=== PATIENT | female | born 1980 | race Caucasian/White ===

== ENCOUNTER → 2018-03-18 | Outpatient (CLI) | payer OTHER ==
[2018-03-18 14:01] LABS: BASOPHILS ABSOLUTE AUTO 0.07 K/mm3 (0.00-0.23); BASOPHILS PERCENT AUTO 1 % (0-2); EOSINOPHILS ABSOLUTE AUTO 0.11 K/mm3 (0.00-0.68); EOSINOPHILS PERCENT AUTO 2 % (0-6); Hematocrit 35.5 % (33.0-51.0); Hemoglobin 11.8 g/dL (11.5-16.0); IMMATURE GRAN ABSOLUTE AUTO 0.03 K/mm3 (0.00-0.10); IMMATURE GRAN PERCENT AUTO 0 % (0-1); LYMPHOCYTES PERCENT AUTO 41 % (21-46); MONOCYTES ABSOLUTE AUTO 0.36 K/mm3 (0.16-1.47); MONOCYTES PERCENT AUTO 5 % (4-13); Mean Corpuscular HGB 31.8 pg (26.0-34.0); Mean Corpuscular HGB Conc 33.2 g/dL (31.5-36.5); Mean Corpuscular Volume 96 fL (80-100); Mean Platelet Volume 10.9 fL (9.1-12.4); NEUTROPHILS ABSOLUTE AUTO 3.81 K/mm3 (1.96-9.15); NEUTROPHILS PERCENT AUTO 51 % (41-73); Platelet Count 320 K/mm3 (150-400); RDW Coefficient Variation 14.3 % (11.7-14.2); RDW Standard Deviation 50.1 fL (35.1-46.3); Red Blood Cell Count 3.71 M/mm3 (3.80-5.20); White Blood Cell Count 7.48 K/mm3 (4.00-11.30)
[2018-03-18 14:21] LABS: Anion Gap 11 mmol/L (6-16); Blood Urea Nitrogen 8 mg/dL (8-24); CO2, Blood 25 mmol/L (21-32); Calcium, Blood 9.2 mg/dL (8.5-10.1); Chloride, Blood 105 mmol/L (98-108); Creatinine, Blood 0.73 mg/dL (0.40-1.00); Free Thyroxine 0.98 ng/dL (0.70-1.60); Glomerular Filtration Rate >60 (60-); Glucose, Blood 95 mg/dL (70-99); Potassium, Blood 3.6 mmol/L (3.5-5.5); Sodium, Blood 141 mmol/L (136-145); Thyroid Stimulating Hormone 0.735 uIU/mL (0.360-4.800)
== END ==
LOC: LAB EV 13:57 → LAB SHORT 13:57
PROVIDERS: Physician Assistant Surgical
DX: N94.6 Dysmenorrhea, unspecified (principal); R53.83 Other fatigue
CPT/HCPCS: 80048; 84439; 84443; 84481; 85025

== ENCOUNTER 2018-04-22 05:51 | Day surgery (SDC) | payer OTHER ==
[~2018-04-22] VITALS: Ht 160 cm; Wt 60.8 kg
[2018-04-22] MEDS ORDERED: BIRTH CONTROL (06:05)
[2018-04-22 06:49] LABS: BASOPHILS ABSOLUTE AUTO 0.08 K/mm3 (0.00-0.23); BASOPHILS PERCENT AUTO 1 % (0-2); EOSINOPHILS ABSOLUTE AUTO 0.17 K/mm3 (0.00-0.68); EOSINOPHILS PERCENT AUTO 1 % (0-6); Hematocrit 27.2 % (33.0-51.0); Hemoglobin 8.9 g/dL (11.5-16.0); IMMATURE GRAN ABSOLUTE AUTO 0.04 K/mm3 (0.00-0.10); IMMATURE GRAN PERCENT AUTO 0 % (0-1); LYMPHOCYTES ABSOLUTE AUTO 3.31 K/mm3 (0.84-5.20); LYMPHOCYTES PERCENT AUTO 25 % (21-46); MONOCYTES ABSOLUTE AUTO 0.48 K/mm3 (0.16-1.47); MONOCYTES PERCENT AUTO 4 % (4-13); Mean Corpuscular HGB 31.8 pg (26.0-34.0); Mean Corpuscular HGB Conc 32.7 g/dL (31.5-36.5); Mean Corpuscular Volume 97 fL (80-100); Mean Platelet Volume 10.5 fL (9.1-12.4); NEUTROPHILS ABSOLUTE AUTO 8.94 K/mm3 (1.96-9.15); NEUTROPHILS PERCENT AUTO 69 % (41-73); Platelet Count 332 K/mm3 (150-400); RDW Coefficient Variation 13.7 % (11.7-14.2); RDW Standard Deviation 49.1 fL (35.1-46.3); White Blood Cell Count 13.02 K/mm3 (4.00-11.30)
[2018-04-22 07:23] LABS: Anion Gap 9 mmol/L (6-16); Blood Urea Nitrogen 14 mg/dL (8-24); Bun/Creatinine Ratio 21.1 (12.0-20.0); CO2, Blood 20 mmol/L (21-32); Calcium, Blood 7.8 mg/dL (8.5-10.1); Chloride, Blood 113 mmol/L (98-108); Creatinine, Blood 0.67 mg/dL (0.40-1.00); Glomerular Filtration Rate >60 (60-); Glucose, Blood 82 mg/dL (70-99); Potassium, Blood 3.5 mmol/L (3.5-5.5); Sodium, Blood 142 mmol/L (136-145)
[2018-04-22 15:52] LABS: Hematocrit 28.8 % (33.0-51.0); Hemoglobin 9.6 g/dL (11.5-16.0)
== END 2018-04-22 18:43 | disposition home or self-care (01) ==
LOC: ER 05:51 → ORSCMMR 06:00 → ORD 06:00 → ORSCMMR 06:01 → ER 07:21 → SURS 07:21 → ORD 18:43 → SURS 18:43
PROVIDERS: Emergency Medicine; Obstetrics & Gynecology
PROC: 0UB98ZZ Excision of Uterus, Via Natural or Artificial Opening Endoscopic (ICD-10-PCS; principal; 2018-04-22)
PROC: 0UT74ZZ Resection of Bilateral Fallopian Tubes, Percutaneous Endoscopic Approach (ICD-10-PCS; principal; 2018-04-22)
PROC: 0U5B8ZZ Destruction of Endometrium, Via Natural or Artificial Opening Endoscopic (ICD-10-PCS; principal; 2018-04-22)
DX: N92.0 Excessive and frequent menstruation with regular cycle (principal); D64.9 Anemia, unspecified; D25.9 Leiomyoma of uterus, unspecified; Z30.2 Encounter for sterilization
CPT/HCPCS: 36415; 36430; 80048; 85014; 85018; 85025; 86850; 86900; 86901; 86923; 96361; 96374; 99285; J1200; J2310; J2405; J3010; J7030; J7120; P9016

== ENCOUNTER 2018-04-29 10:49 | Day surgery (SDC) | payer OTHER ==
[~2018-04-29] VITALS: Ht 160 cm; Wt 61.7 kg
[~2018-04-29 10:49] MED LIST: BIRTH CONTROL
[2018-04-29] MEDS ORDERED: SLOW FE142 MG PO (11:07)
== END 2018-04-29 14:50 | disposition home or self-care (01) ==
LOC: ORSCSDS 10:49
PROVIDERS: Obstetrics & Gynecology
PROC: 0U5B8ZZ Destruction of Endometrium, Via Natural or Artificial Opening Endoscopic (ICD-10-PCS; principal; 2018-04-29 12:00)
PROC: 0UB74ZZ Excision of Bilateral Fallopian Tubes, Percutaneous Endoscopic Approach (ICD-10-PCS; principal; 2018-04-29 12:00)
DX: N92.1 Excessive and frequent menstruation with irregular cycle (principal); D25.0 Submucous leiomyoma of uterus; N93.8 Other specified abnormal uterine and vaginal bleeding; Z30.2 Encounter for sterilization
CPT/HCPCS: 88302; 88305; J0171; J0690; J1100; J2250; J2405; J2710; J3010

== ENCOUNTER → 2018-07-14 | Outpatient (CLI) | payer OTHER ==
[~2018-07-14] MED LIST changes: +SLOW FE142 MG PO
== END | disposition home or self-care (01) ==
LOC: LAB SHORT 07:56 → PLD 07:56
DX: D48.5 Neoplasm of uncertain behavior of skin (principal)
CPT/HCPCS: 88305

== ENCOUNTER 2020-07-09 23:49 | Emergency (ER) | payer OTHER ==
[~2020-07-09] VITALS: Ht 160 cm; Wt 52.2 kg
[2020-07-10 00:23] LABS: Source, Urine Clean Catch
[2020-07-10 00:28] LABS: Bilirubin, Urine Neg (Neg); Blood, Urine Neg (Neg); Glucose Qualitative, Urine Neg (Neg); Ketones, Urine 1+ (Neg); Leukocyte Esterase, Urine Neg (Neg); Nitrite, Urine Neg (Neg); Protein, Urine Neg (Neg); Specific Gravity, Urine 1.005 (1.003-1.022); Urobilinogen, Urine NORM (Normal)
[2020-07-10 00:29] LABS: Appearance, Urine Clear (Clear); Color, Urine Yellow (P-Yellow)
[2020-07-10 00:38] LABS: BASOPHILS ABSOLUTE AUTO 0.09 K/mm3 (0.00-0.23); BASOPHILS PERCENT AUTO 1 % (0-2); EOSINOPHILS ABSOLUTE AUTO 0.09 K/mm3 (0.00-0.68); EOSINOPHILS PERCENT AUTO 1 % (0-6); Hematocrit 34.8 % (33.0-51.0); Hemoglobin 11.3 g/dL (11.5-16.0); IMMATURE GRAN ABSOLUTE AUTO 0.03 K/mm3 (0.00-0.10); IMMATURE GRAN PERCENT AUTO 0 % (0-1); LYMPHOCYTES ABSOLUTE AUTO 3.35 K/mm3 (0.84-5.20); LYMPHOCYTES PERCENT AUTO 42 % (21-46); MONOCYTES ABSOLUTE AUTO 0.33 K/mm3 (0.16-1.47); MONOCYTES PERCENT AUTO 4 % (4-13); Mean Corpuscular HGB 31.9 pg (26.0-34.0); Mean Corpuscular HGB Conc 32.5 g/dL (31.5-36.5); Mean Corpuscular Volume 98 fL (80-100); Mean Platelet Volume 10.5 fL (9.1-12.4); NEUTROPHILS ABSOLUTE AUTO 4.07 K/mm3 (1.96-9.15); NEUTROPHILS PERCENT AUTO 51 % (41-73); Platelet Count 289 K/mm3 (150-400); RDW Coefficient Variation 12.9 % (11.7-14.2); RDW Standard Deviation 47.3 fL (35.1-46.3); Red Blood Cell Count 3.54 M/mm3 (3.80-5.20); White Blood Cell Count 7.96 K/mm3 (4.00-11.30)
[2020-07-10 00:57] LABS: Alanine Aminotransfer (ALT/SGP 20 U/L (12-78); Albumin, Blood 3.7 g/dL (3.4-5.0); Albumin/Globulin Ratio 1.1 (0.8-1.8); Alk Phos 47 U/L (50-136); Anion Gap 7 mmol/L (6-16); Aspartate Aminotrans (AST/SGOT 22 U/L (12-37); Bilirubin, Total 0.4 mg/dL (0.1-1.0); Blood Urea Nitrogen 15 mg/dL (8-24); Bun/Creatinine Ratio 18.2 (12.0-20.0); CO2, Blood 24 mmol/L (21-32); Calcium, Blood 8.6 mg/dL (8.5-10.1); Chloride, Blood 113 mmol/L (98-108); Creatinine, Blood 0.82 mg/dL (0.40-1.00); Globulin, Blood 3.5 g/dL (2.2-4.0); Glomerular Filtration Rate >60 (60-); Glucose, Blood 99 mg/dL (70-99); Potassium, Blood 3.7 mmol/L (3.5-5.5); Sodium, Blood 144 mmol/L (136-145); Total Protein, Blood 7.2 g/dL (6.4-8.2)
[2020-07-10] MEDS ORDERED: IBUP400 PO (02:14)
== END 2020-07-10 02:24 | disposition home or self-care (01) ==
LOC: ER 23:49
PROVIDERS: Emergency Medicine
DX: R10.31 Right lower quadrant pain (principal)
CPT/HCPCS: 36415; 74177; 80053; 81003; 81025; 83605; 83690; 85025; 96361; 96374; 99284; J2270; J7030; Q9967

== ENCOUNTER 2021-06-04 05:58 | Day surgery (SDC) | payer OTHER ==
[~2021-06-04] VITALS: Ht 160 cm; Wt 55.3 kg
[~2021-06-04 05:58] MED LIST changes: +ACYC400 PO; +IBUP400 PO; +SUDOGEST PO
[2021-06-04] MEDS ORDERED: IBUP200 PO (06:27)
--- NOTE | 2021-06-04 07:15 | NUR ---
PATIENT WEARING CONTACT LENSES BILAT. STATES SHE SLEEPS IN THEM EACH NIGHT. LEFT IN EYES PER PATIENT REQUEST. DR HENRIQUEZ AWARE AND AGREEABLE TO THIS PLAN.
--- NOTE | 2021-06-04 10:33 | NUR ---
PT TO ROOM 228 AT ABOUT 1015. PT IS A/O X4. RESTING IN BED. MEDICATED WITH FENTANYL PRIOR TO ARRIVAL TO UNIT. PT STATES THIS IS HELPING WITH PAIN. BP IN 90'S SYSTOLIC, CONSISTANT WITH PACU BP'S. SYED IN PLACE, SCDS ON, LAP SITES X2 CDI WITH BANDAIDS. PT ORIENTED TO ROOM AND CALL LIGHT.
[2021-06-04] MEDS ORDERED: Percocet 5-3251 EACH PO (12:08)
[2021-06-04] MEDS ORDERED: MOTRIN IB200 MG PO (12:09)
--- NOTE | 2021-06-04 14:50 | NUR ---
PT AMBULATED IN HALLWAY, TOLERATED WELL. KUNAL WYLIE. PT BACK IN BED FROM CHAIR.
--- NOTE | 2021-06-04 17:11 | NUR ---
DISCHARGE PT IS A/O X4, IND IN ROOM. TOLERATING PO INTAKE AND VOIDING POST-SYED REMOVAL. PAIN MANAGED WITH PO PAIN MED PER ORDERS. PT HAVING VERY SCANT BLEEDING. IV DC'D WNL. PT DRESSED IND. DC INSTRUCTIONS REVIEWED WITH PT; DENIES QUESTIONS OR CONCERNS. PERSONAL BELONGINGS SENT WITH PT WELL DC INSTRUCTIONS AND SCRIPT FOR PAIN MED. DRIVING PT HOME. PT ESCORTED TO VEHICLE VIA WHEELCHAIR.
== END 2021-06-04 17:44 | disposition home or self-care (01) ==
LOC: ORSCMMR 05:58 → ORD 07:30 → ORSCMMR 07:30 → SURS 10:13 → ORSCMMR 17:44
PROVIDERS: Obstetrics & Gynecology
PROC: 0UT9FZZ Resection of Uterus, Via Natural or Artificial Opening With Percutaneous Endoscopic Assistance (ICD-10-PCS; principal; 2021-06-04 07:30)
DX: N93.8 Other specified abnormal uterine and vaginal bleeding (principal); D25.9 Leiomyoma of uterus, unspecified; N80.0 Endometriosis of uterus; Z79.899 Other long term (current) drug therapy
CPT/HCPCS: 88307; A9270; J0171; J0690; J1100; J1885; J2250; J2405; J2704; J3010; J7120

== ENCOUNTER → 2025-01-26 | Outpatient (CLI) | payer BC ==
[~2025-01-26] MED LIST changes: +IBUP200 PO; +MOTRIN IB200 MG PO; +Percocet 5-3251 EACH PO
== END ==
LOC: LAB 16:14 → LAB SHORT 16:14
DX: L73.2 Hidradenitis suppurativa (principal)
CPT/HCPCS: 87070; 87077; 87186; 87205

== ENCOUNTER 2025-07-21 05:57 | Day surgery (SDC) | payer BC ==
[~2025-07-21] VITALS: Ht 160 cm; Wt 56.4 kg
[2025-07-21] VITALS (10 sets, daily range): BP systolic 93–113; BP diastolic 57–71
[~2025-07-21 05:57] MED LIST changes: +Oxybutynin Chlo10 MG PO; +PSEUDOEPHEDRINE30 M2 PO
[2025-07-21] MEDS ORDERED: CeFAZolin Sodium 2,000 MG in NS 100 ML IV SCH (06:25)
--- NOTE | 2025-07-21 06:52 | NUR ---
AMBULATORY INTO SDS. PT DENIES PAIN. HISTORY AND ALLERGIES REVIEWED. LUNGS CLEAR. VS WDL. NPO STATUS CONFIRMED. CHLORHEXIDINE SHOWER AND WIPE X 2. PT PURSE AND BELONGINGS IN BELONGINGS BAG BENEATH THE GURNEY. PT GLASSES TO PACU. PT MOTHER ORLIN IS HER RIDE HOME TODAY.
[2025-07-21] MEDS ORDERED: Bupivacaine 0.5% W/EPI 1:200000 SDV 30 ML Vial ONE ×2 (07:07→07:55)
[2025-07-21] MEDS ORDERED: Ondansetron HCl 2 MG / ML 2ML Vial ONE (07:10)
[2025-07-21] MEDS ORDERED: Midazolam HCl 1MG / ML 2ML Vial IV PRN (07:10)
[2025-07-21] MEDS ORDERED: Dexamethasone Sod Phos 10 MG/ML 1ML VIAL ONE (07:10)
[2025-07-21] MEDS ORDERED: Midazolam HCl 1MG / ML 2ML Vial ONE (07:26)
[2025-07-21] MEDS ORDERED: FentaNYL Citrate 50 MCG/ML 2 ML Injection ONE (07:33)
[2025-07-21] MEDS ORDERED: Ketorolac Tromethamine 30mg Vial ONE (07:43)
[2025-07-21] MEDS ORDERED: Metoclopramide HCl 5MG / ML 2ML Vial IV PRN (10:15)
[2025-07-21] MEDS ORDERED: HYDROmorphone HCl/Pf 1MG SYR IV PRN (10:15)
[2025-07-21] MEDS ORDERED: FentaNYL Citrate 50 MCG/ML 2 ML Injection IV PRN ×2 (10:20)
[2025-07-21] MEDS ORDERED: Ondansetron HCl 2 MG / ML 2ML Vial IV PRN (10:20)
[2025-07-21] MEDS ORDERED: OxyCODONE 5 mg/Acetamin 325 mg TABLET PO PRN (10:20)
[2025-07-21] MEDS ORDERED: Prochlorperazine Edisylate 10 mg Vial IV PRN (10:20)
[2025-07-21] MEDS ORDERED: Albuterol 2.5 MG/3 ML VIAL INH PRN (10:20)
--- NOTE | 2025-07-21 11:45 | NUR ---
TO STEP POST PROCEDURE. BILAT INNER THIGH INCISIONS WITH FOAM DRESSINGS, CDI. REPORTS MILD PAIN, 3/10. DENIES NAUSEA/SOB. JERAMY PO WELL. PT SENT HOME WITH ADDITIONAL GAUZE IF NEEDED, NARENDRA BOTTLE FOR COMFORT, AND ICE THERAPY. 1 PERCOCET GIVEN ORDERED. UP TO BR WITH STEADY GAIT. DC'D IV INTACT. VERBALIZED UNDERSTANDING OF DC INSTRUCTIONS, FOLLOW UP, MEDICATIONS. DC'D VIA WC TO PRIVATE CAR WITH BED WORKER.
== END 2025-07-21 11:25 | disposition home or self-care (01) ==
LOC: ORSCMMR 05:57 → ORD 07:30 → ORSCMMR 11:25
PROVIDERS: Surgery
PROC: 0HXHXZZ Transfer Right Upper Leg Skin, External Approach (ICD-10-PCS; principal; 2025-07-21 07:30)
PROC: 0HXJXZZ Transfer Left Upper Leg Skin, External Approach (ICD-10-PCS; principal; 2025-07-21 07:30)
DX: L73.2 Hidradenitis suppurativa (principal); Z79.899 Other long term (current) drug therapy
CPT/HCPCS: 88305; A9270; J0690; J1100; J1885; J2250; J2405; J2704; J3010; J7120

== ENCOUNTER 2025-08-24 01:33 | Day surgery (SDC) | payer BC | END 2025-08-24 23:00 | disposition home or self-care (01) | LOC: WOUND 01:33 | DX: L73.2 Hidradenitis suppurativa (principal); S31.502D Unspecified open wound of unspecified external genital organs, female, subsequent encounter | CPT/HCPCS: G0463 ==